=== PATIENT | female | born 1995 | race Hispanic/Latino ===

== ENCOUNTER 2018-12-29 07:19 | Emergency (ER) | payer BC, OTHER ==
[2018-12-29 07:39] VITALS: BP 122/75; PULSE 77; RESP 18; TEMP 98.3; O2SAT 99
--- NOTE | 2018-12-29 08:37 | ED PDOC ---
HPI: Skin/Bite Injury Time Seen by Provider: 12/29/18 07:52 Chief Complaint (Nursing): Abnormal Skin Integrity Chief Complaint (Provider): Abnormal Skin Integrity History Per: Patient History/Exam Limitations: no limitations Onset/Duration Of Symptoms: Days (x3 days ago) Current Symptoms Are (Timing): Still Present Additional Complaint(s): Kourtney Queen is a 23 year old female with no past medical history, who presents to the emergency department complaining of an allergic reaction. She states she believes that the reaction is to the dayquil that she started taking x3 day ago. Patient reports noticing the rash on and that it has gotten worse since. She reports that the rash is only to her face and that it stared on the right side above the eye spreading to the lips and jaw. Patient states that this has never happened before and that the rash is not painful but it is itchy. PMD: No provider LMP: 4-5 days ago Past Medical History Reviewed: Historical Data, Nursing Documentation, Vital Signs Vital Signs: Last Vital Signs Temp 98.3 F 12/29/18 07:38 Pulse 77 12/29/18 07:38 Resp 18 12/29/18 07:38 BP 122/75 12/29/18 07:38 Pulse Ox 99 12/29/18 07:38 - Medical History PMH: No Chronic Diseases - Surgical History Surgical History: No Surg Hx - Family History Family History: States: No Known Family Hx - Home Medications Home Medications: Ambulatory Orders Medication Instructions Recorded Mupirocin 2% Ointment [Bactroban 1 appl TP TID #1 tube 12/29/18 Ointment] - Allergies Allergies/Adverse Reactions: Allergies Allergy/AdvReac Type Severity Reaction Status Date / Time No Known Allergies Allergy Verified 12/29/18 08:08 Review of Systems ROS Statement: Except As Marked, All Systems Reviewed And Found Negative Skin: Positive for: Rash (itchy; (-) pain) Physical Exam - Reviewed Nursing Documentation Reviewed: Yes Vital Signs Reviewed: Yes - Physical Exam Appears: Positive for: Non-toxic, No Acute Distress Head Exam: Positive for: ATRAUMATIC, NORMOCEPHALIC Skin: Positive for: Rash (impetigal rash with yellow exudates/skin abrasion around nasal labial folds, eyes, left side lips and chin) Respiratory: Negative for: Respiratory Distress Neurologic/Psych: Positive for: Alert - ECG O2 Sat by Pulse Oximetry: 99 (RA) Pulse Ox Interpretation: Normal Medical Decision Making Medical Decision Making: Time: 824 Impression: impetigo Plan: --Patient is stable and will be discharged with Rx for bactroban ointment. --Patient instructed to follow up with PMD. Scribe Attestation: Documented by Yair Vale, acting as a scribe for Flei Maria MD. Provider Scribe Attestation: All medical record entries made by the Scribe were at my direction and personally dictated by me. I have reviewed the chart and agree that the record accurately reflects my personal performance of the history, physical exam, medical decision making, and the department course for this patient. I have also personally directed, reviewed, and agree with the discharge instructions and disposition. Disposition - Clinical Impression Clinical Impression: Impetigo - Disposition Disposition: Routine/Home Disposition Time: 08:28 Condition: STABLE Prescriptions: Mupirocin 2% Ointment [Bactroban Ointment] 1 appl TP TID #1 tube Instructions: Impetigo Forms: [employer] (German), [facility] ED School/Work Excuse
== END 2018-12-29 08:30 | disposition home or self-care (01) ==
LOC: H.ER 07:19
DX: L01.00 Impetigo, unspecified (principal)